=== PATIENT | female | born 1940 | race Caucasian/White ===

== ENCOUNTER 2018-09-15 14:14 | Inpatient (IN) | payer OTHER ==
[2018-09-15] VITALS (8 sets, daily range): BP systolic 48–111; BP diastolic 29–67
[~2018-09-15] VITALS: Ht 167.6 cm; Wt 85.9 kg
[~2018-09-15 14:14] MED LIST: AMLODIPINE-BEN1 EAC3; BUSPIRONE HCL10 MG PO; CARVEDILOL25 MG PO; CINNAMON; COLACE100 MG PO; DHEA25 MG; DIAZEPAM2 MG PO; DONEPEZIL HCL5 MG PO; DOXYCYCLINE 10100 MG PO; FISH OIL 1,0001 EAC5 PO; FLEXERIL PO; GLUCOSAMINE &1 EAC1 PO; HYDROCHLOROTHIA25 M1 PO; HYDROXYZINE HCL25 M1 PO; KETOCONAZOLE60 GM; LEVAQUIN 500 M500 M2 PO; LISINOPRIL10 MG; LISINOPRIL20 MG PO; LORTAB 5 MG/5001 TA1 PO; MINIPRIN81 MG; NEURONTIN 300300 M1; NEURONTIN 300300 M1 PO; NORCO 5-325 TA1 EAC1 PO; NORVASC10 MG PO; OMEPRAZOLE20 M2; OMEPRAZOLE40 MG PO; PAXIL 20 MG TAB20 M1 PO; PERCOCET 5-3251 EACH PO; PRAVACHOL40 MG PO; PREDNISONE 20 M20 MG PO; PROAIR HFA8.5 GM IH; TOPROL XL100 MG; TURMERIC 450-51 EACH PO; TYLENOL325 MG PO; ULTRAM 50MG TAB50 MG PO; VEGETABLE LAXA8.6 MG; VICOPROFEN 2001 EACH PO; VITAMIN B-125000 MCG PO; VITAMIN D-32000 UNIT PO; VITAMIN E600 UNIT PO; VITAMIN E800 UNIT; WOMEN'S 50 PLU1 EACH PO; ZEGERID 20 MG1 EACH PO; ZOCOR80 MG
[2018-09-15 14:38] LABS: HEMATOCRIT 39.6 % (37.0-47.0); HEMOGLOBIN 13.4 gm/dL (12.0-15.0); MCH 33.1 pg (26.0-34.0); MCHC 33.9 g/dL (28.0-37.0); MCV 97.7 fL (80.0-100.0); MPV 9.1 fl. (7.2-11.1); NUCLEATED RBCS 0 /100WBC; PLATELET COUNT* 183 thou/uL (150-400); RBC 4.05 mil/uL (4.20-5.00); RDW-CV 13.9 % (10.5-14.5); WBC 17.4 thou/uL (4.0-11.0)
[2018-09-15] MEDS ORDERED: ZANAFLEX4 MG PO (14:39)
[2018-09-15] MEDS ORDERED: EFFEXOR XR75 MG PO (14:40)
[2018-09-15 14:45] LABS: ANION GAP 13 mmol/L (7-16); BUN 29 mg/dL (7-18); CALCIUM 9.4 mg/dL (8.5-10.1); CHLORIDE 98 mmol/L (98-107); CO2 25 mmol/L (21-32); GLUCOSE 168 mg/dL (70-99); POTASSIUM 4.4 mmol/L (3.5-5.1); SODIUM 136 mmol/L (136-145)
[2018-09-15 14:52] LABS: ALBUMIN 3.7 g/dL (3.4-5.0); ALKALINE PHOSPHATASE 91 U/L (46-116); LIPASE 82 U/L (73-393); SGOT 22 U/L (15-37); SGPT 20 U/L (30-65); TOTAL PROTEIN 7.7 g/dL (6.4-8.2); TROPONIN-I LEVEL <0.06 ng/mL (<0.06)
[2018-09-15 14:54] LABS: ABSOLUTE LYMPHOCYTES 0.7 thou/uL (0.8-5.3); ABSOLUTE MONOCYTES 0.9 thou/uL (0.0-1.2); ABSOLUTE NEUTROPHILS 15.8 thou/uL (1.6-8.1); PLATELET ESTIMATE ADEQUATE
[2018-09-15 16:11] LABS: URINE CLARITY HAZY; URINE COLOR DARK YELLOW
[2018-09-15 16:12] LABS: ICTOTEST (BILI CONFIRMATORY) Negative (Negative); URINE REDUCING SUBSTANCE NEGATIVE (Negative)
[2018-09-15 16:15] LABS: BACTERIA-REFLEX >30 Many /HPF (None Seen); CASTS None Seen /LPF (None Seen); CRYSTALS None Seen /LPF (None Seen); SQUAMOUS NONE SEEN /LPF (0-3); URINE RBC >20 Many /HPF (0-2); URINE WBC-REFLEX >25 Many /HPF (0-5)
--- NOTE | 2018-09-15 19:47 | NUR ---
PT ARRIVED FROM ER AT APPROX 1650, PT A/O X4, C/O PAIN IN RIGHT FLANK, PT FEBRILE, ALL OTHER VSS, PT SPOKE TO , ORDERS RECIEVED FOR SURGERY TONIGHT. PTS DAUGHTER AT BEDSIDE, ADMISSION HX AND ASSESMENT DONE CHARTED. REPORT GIVEN TO HALI MONSIVAIS
--- NOTE | 2018-09-15 20:00 | NUR ---
PT WENT TO SURGERY AT 1999. PAPERWORK SIGNED, NO CHANCE TO GET VITALS OR DO ASSESSMENT BEFORE LEAVING. FAMILY FOLLOWING TO OR. WILL CONTINUE TO MONITOR.
[2018-09-15 20:29] LABS: PROTIME 10.6 Seconds (9.20-11.50)
[2018-09-15 22:27] LABS: HEMATOCRIT 29.4 % (37.0-47.0); MCH 34.3 pg (26.0-34.0); MCV 100.9 fL (80.0-100.0); MPV 8.9 fl. (7.2-11.1); RBC 2.92 mil/uL (4.20-5.00); RDW-CV 14.1 % (10.5-14.5)
[2018-09-15 22:42] LABS: PCO2 29.4 mmHg (35.0-45.0); PO2 70.9 mmHg (75.0-100.0); pH 7.392 (7.340-7.450)
[2018-09-15 22:43] LABS: BE -6.4 mmol/L (-2 to +3); HCO3 17.5 mmol/L (22.0-26.0)
[2018-09-15 22:44] LABS: MAGNESIUM 1.1 mg/dL (1.8-2.4); PHOSPHORUS* 0.9 mg/dL (2.5-4.9)
[2018-09-15 23:04] LABS: CALCIUM 7.9 mg/dL (8.5-10.1); CREATININE 2.1 mg/dL (0.6-1.3)
[2018-09-15 23:07] LABS: POTASSIUM 2.3 mmol/L (3.5-5.1)
[2018-09-15 23:09] LABS: ALBUMIN 2.3 g/dL (3.4-5.0); TOTAL BILIRUBIN 0.7 mg/dL (<0.1-1.0); TOTAL PROTEIN 5.2 g/dL (6.4-8.2)
[2018-09-16] VITALS (73 sets, daily range): BP systolic 67–136; BP diastolic 24–78
[2018-09-16 06:24] LABS: HEMATOCRIT 27.9 % (37.0-47.0); HEMOGLOBIN 9.6 gm/dL (12.0-15.0); MCH 33.5 pg (26.0-34.0); MCHC 34.3 g/dL (28.0-37.0); MCV 97.6 fL (80.0-100.0); MPV 9.3 fl. (7.2-11.1); NUCLEATED RBCS 0 /100WBC; PLATELET COUNT* 89 thou/uL (150-400); RBC 2.85 mil/uL (4.20-5.00); RDW-CV 14.4 % (10.5-14.5)
[2018-09-16 06:30] LABS: CALCIUM 7.4 mg/dL (8.5-10.1); CREATININE 2.1 mg/dL (0.6-1.3); MAGNESIUM 1.5 mg/dL (1.8-2.4)
[2018-09-16 06:31] LABS: POTASSIUM 3.3 mmol/L (3.5-5.1)
[2018-09-16 06:40] LABS: PREALBUMIN 15.3 mg/dL (18.0-35.7)
[2018-09-16 07:20] LABS: ABSOLUTE LYMPHOCYTES 0.3 thou/uL (0.8-5.3); ABSOLUTE NEUTROPHILS 16.7 thou/uL (1.6-8.1); PLATELET ESTIMATE DECREASED
--- NOTE | 2018-09-16 07:41 | NUR ---
Pt arrived from PACU to ICU at 2200. Pt hypotensive, BP 70s-80s/30s-40s. Started on Levophed, eventually titraing to max. Added Gigi-synephrine, titrated to 150 mcg to attain MAP at least 65. Pt tends to be fidgety, not always holding still for BP reading, which obsures some readings. Pt Alert & oriented, though forgetful. Spain draining cloudy, dark marin to red urine, but urine has cleared during course of shift. T 102.4 on arrival. Tmax 103.4, but latest reading 100.6. Will continue to monitor.
[2018-09-16 14:23] LABS: MAGNESIUM 2.2 mg/dL (1.8-2.4); POTASSIUM 3.6 mmol/L (3.5-5.1)
--- NOTE | 2018-09-16 16:09 | OP ---
[facility] [address] [place] [address] OPERATIVE REPORT Name: ALESIAJANEY HERMINIO Room: [address] IN M.R.#: [id number] Admission: 09/15/18 Attend Phys: Tito Reid MD Discharge: Date of : 40 Report #: [id number] THIS REPORT FOR: //name// CC: Tito Reid [facility] physician/PCP DATE OF SERVICE: 09/15/2018 PREOPERATIVE DIAGNOSIS: Right ureteral calculus with urinary tract infection, flank pain, signs of sepsis. POSTOPERATIVE DIAGNOSIS: DIAGNOSIS: Right ureteral calculus with urinary tract infection, flank pain, signs of sepsis. PROCEDURE: Cystoscopy, right retrograde pyelogram, right ureteral stent placement. SURGEON: Alexi White M.D. ANESTHESIA: General. ESTIMATED BLOOD LOSS: None. DRAINS: 6 x 28 right ureteral stent. SPECIMENS: Urine from right renal pelvis for culture and sensitivity. COMPLICATIONS: None. INDICATIONS: This is a 78-year-old female with right flank pain, fever, chills, renal insufficiency, elevated lactate and borderline hypotension. Noncontrast CT scan reveals a right distal ureteral calculus with severe hydronephrosis. Urgent decompression is indicated. See the consult note for details. Options were discussed and the patient has elected to undergo cystoscopy with right retrograde pyelogram and right ureteral stent placement. I explained the need to defer definitive stone management until UTI is eradicated. Risks and benefits of the procedure were discussed with the patient and her family at bedside. Questions were answered. They voiced clear understanding and wanted to proceed. DESCRIPTION OF PROCEDURE: The patient was on perioperative IV antibiotics. After induction of general anesthesia, she was positioned, prepped and draped in the lithotomy position. A timeout procedure was performed. Cystourethroscopy was performed. There was a urethral caruncle. The urethra and bladder were otherwise normal on systematic examination. The ureteral orifices were orthotopic. No blood was seen from either. A 5-Scottish [place] [address] OPERATIVE REPORT Name: JANEY DUMAS Room: [address] IN M.R.#: [id number] Admission: 09/15/18 Attend Phys: Tito Reid MD Discharge: Date of : 40 Report #: [id number] advanced with fluoroscopic guidance to the region of the right renal pelvis and 10 mL of cloudy urine was aspirated. This was sent for culture and sensitivity. Catheter was then used to perform retrograde pyelogram after withdrawing it into the distal ureter. This reveals a filling defect in the distal ureter with dilation and tortuosity of the ureter proximal to the filling defect and of the renal pelvis. The catheter was advanced back into the renal pelvis and used to pass a sensor wire into the renal pelvis with fluoroscopic guidance. Catheter was removed leaving the wire in place. The wire was used for placement of a 6 x 28 right ureteral stent with good position confirmed in the renal pelvis fluoroscopically and in the bladder visually. There was brisk drainage of the cloudy urine from the stent. The bladder was left partially filled and the scope was removed. Lidocaine jelly was given per urethra. A 16-Scottish Spain catheter was placed. The patient was transferred off of the operating room table and to the recovery room in stable condition. Further management will depend on her clinical progress, but will involve at least 2 weeks of culture-directed antibiotics and definitive stone management electively after her infection is eradicated. <ELECTRONICALLY SIGNED> By: Alexi Wihte MD 09/16/18 1609 [id number] [id number] White MD /nt
--- NOTE | 2018-09-16 17:27 | NUR ---
PT CARE ASSUMED AFTER REPORT. ASSESSMENTS COMPLETE. 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 PT WITH C/O "CHEST PRESSURE" THIS AFTERNOON. STAT EKG AND TROPONIN. TROP CRITICLE AT 0.85. DR TRAYLOR NOTIFIED. CARDIOLOGY CONSULT AND TROP FOR 1999 AND AM ORDERED. PT REMAINS ON LEVOPHED GTT TO KEEP MAP AT OR GREATER THAN 65. NS INFUSING. FULLER TO DD WITH DARK URINE. O2 6L HF NC. DENIES PAIN.
--- NOTE | 2018-09-16 20:15 | NUR ---
FAMILY AT BEDSIDE, PT AND FAMILY REQUESTING MEDICATION TO SLEEP, STATES PT NORMALLY TAKES TYLENOL PM WITH MINIMAL RESULTS HOME MEDICATION, STATES MELATONIN IN PAST HAS HAD NO EFFECT ON PT FOR REST, REQUESTING PT TRY AMBIEN. PT ON 3L PER NC, STATES HAS INTERMITTENT DIFFICULTY TAKING DEEP BREATHS, OXYGEN 6L PER NC BEGINNING NOC, TITRATED DOWN TO 3L PER NC BY RT, SAO2 98% ON 3L AT THIS TIME, PT REPORTS INTERMITTENT PRODUCTIVE COUGH, LUNG SOUNDS CLEAR TO ASCULTATION, EDUCATION COUGH DEEP BREATHING EXERCISES, FAMILY CONCERNED PT COULD "DEVELOP PNEUMONIA" WHILE BEING BEDREST. FAMILY REQUESTING BREATHING INHALATION TREATMENTS. SPOKE WITH DR NELSON COMMUNICATED FAMILY/PT REQUESTS, NEW ORDERS RECEIVED FOR AMBIEN HS PRN AND DUONEB INHALATION TX BID PRN, COMMUNICATED NEW ORDERS WITH PT AND FAMILY AT BEDSIDE, WILL INITIATE ORDERS AND CONTINUE TO MONITOR.
--- NOTE | 2018-09-16 21:04 | NUR ---
SERUM TROPONIN INCREASED LEVEL FROM 0.85 TO 0.93, PT DENIES CP OR PRESSURE EXCEPT WHILE TAKING A DEEP BREATH THAT RESOLVES IMMEDIATLY AFTER EXHALATION, REMAINS NSR WITH BBB TRACING YARDAGE CONTROL OPERATOR. CALLED DR RHODES, COMMUNCATED NEW TROPONIN LEVEL, NEW ORDERS RECEIVED ASA 325MG PO X1 NOW AND REPEAT TROPONIN LEVEL 4HOURS FROM LAST TROPONIN DRAWN. COMMUNICATED NEW ORDERS WITH PATIENT, WILL INITATE ORDERS AND CONTINUE TO MONITOR.
--- NOTE | 2018-09-16 21:06 | NUR ---
PT ALLERGIC TO NAPROXEN, DENIES ALLERGY TO ASPIRIN, STATES HAS TAKEN ASA IN PAST WITHOUT ANY ADVERSE EFFECTS.
[2018-09-17] VITALS (56 sets, daily range): BP systolic 101–144; BP diastolic 54–83
[2018-09-17 05:59] LABS: ABSOLUTE EOSINOPHILS 0.4 thou/uL (0.0-0.7); ABSOLUTE LYMPHOCYTES 0.6 thou/uL (0.8-5.3); ABSOLUTE MONOCYTES 0.4 thou/uL (0.0-1.2); ABSOLUTE NEUTROPHILS 10.4 thou/uL (1.6-8.1); BASOPHILS 0.1 %; EOSINOPHILS 3.2 %; HEMATOCRIT 27.4 % (37.0-47.0); HEMOGLOBIN 9.2 gm/dL (12.0-15.0); LYMPHOCYTES 4.7 %; MCHC 33.4 g/dL (28.0-37.0); MCV 98.9 fL (80.0-100.0); MONOCYTES 3.6 %; MPV 9.8 fl. (7.2-11.1); NUCLEATED RBCS 0 /100WBC; PLATELET COUNT* 72 thou/uL (150-400); POLYS 88.4 %; RBC 2.77 mil/uL (4.20-5.00); RDW-CV 14.8 % (10.5-14.5); WBC 11.7 thou/uL (4.0-11.0)
[2018-09-17 06:29] LABS: ALBUMIN 2.3 g/dL (3.4-5.0); CALCIUM 7.6 mg/dL (8.5-10.1); CREATININE 1.2 mg/dL (0.6-1.3); POTASSIUM 3.3 mmol/L (3.5-5.1); TOTAL BILIRUBIN 0.5 mg/dL (<0.1-1.0); TOTAL PROTEIN 4.9 g/dL (6.4-8.2)
--- NOTE | 2018-09-17 06:30 | NUR ---
PROGRESSING TOWARDS GOALS, RESTING QUIETLY WITH EYES CLOSED OFF AND ON DURING NOC, EASILY AROUSABLE TO VERBAL STIMULI, INTERMITTENT CHEST PRESSURE ONLY WHEN COUGHING OR TAKING DEEP BREATH, TROPONIN TRENDING DOWN FROM FROM 0.93 AT 2001 TO 0.90 THIS AM, OXYGEN 3L PER NC SAO2 =>97%, AMBIEN 5MG PO GIVEN X1 FOR INSOMNIA PER REQUEST SOMEWHAT HELPFUL FOR REST. SERUM POTASSIUM 3.3 THIS AM, POTASSIUM CHLORIDE 20MEQ X4 TOTAL DOSES BY INFUSION PUMP STARTED FOLLOWING ORDERED ELECTROLYTE PROTOCOL. JELLOW AND POPSICLE CONSUMED HS, NO N/V THIS SHIFT. NSR WITH BBB TRACING SALON PROFESSIONAL. FULLER CATHETER PATENT DD WITH BLOODY URINE OUTPUT. USING CALL LIGHT FOR NEEDS. CALL LIGHT CONTINUES IN REACH.
--- NOTE | 2018-09-17 10:57 | NUR ---
PT CARE ASSUMED AFTER REPORT. AM ASSESSMENT COMPLETE. 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 O2 3LNC. FULLER TO DD WITH BLOODY URINE. PT GIVEN PRN MIRALAX FOR CONSTIPATION. HAS HAD MULTIPLE VERY SMALL STOOLS. BLOOD PRESSURES WNL. UP TO CHAIR FOR APPROX 30 MIN. REPORTS CHEST PRESSURE WITH COUGH AND DEEP BREATHING. DR TRAYLOR AWARE. PROGRESSING TOWARDS GOALS.
--- NOTE | 2018-09-17 12:25 | EKG ---
[place] [address] ELECTROCARDIOGRAM REPORT Name: JANEY DUMAS Room: [address] ADM IN .R.#: [id number] Admission: 09/15/18 Attend Phys: Tito Reid MD Discharge: Date of : 40 Report #: [id number] THIS REPORT FOR: //name// [facility] ED Test Date: 2018-09-15 Test Time: 14:21:58 Pat Name: JANEY DUMAS Department: Room: [facility] Gender: F Telecommunications Network Planner: Lanny PISANO : 1940 Requested By: Isaac Armendariz Order Number: [id number] MD: Emanuel Conner Measurements Intervals [place] Rate: 68 P: 34 GA: 200 QRS: -86 QRSD: 158 T: -68 QT: 453 QTc: 482 Interpretive Statements 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
--- NOTE | 2018-09-17 12:31 | EKG ---
[place] [address] ELECTROCARDIOGRAM REPORT Name: JANEY DUMAS Room: [address] ADM IN M.R.#: [id number] Admission: 09/15/18 Attend Phys: Tito Reid MD Discharge: Date of : 40 Report #: [id number] THIS REPORT FOR: //name// [facility] Test Date: 2018-09-16 Test Time: 14:41:28 Pat Name: JANEY DUMAS Department: Room: [address] Gender: F Switchman Supervisor: UNKNOWN : 1940 Requested By: Emanuel Conner Order Number: [id number] Denis MD: Emanuel Conner Measurements Intervals [place] Rate: 72 P: 70 SC: 183 QRS: -76 QRSD: 161 T: -61 QT: 477 QTc: 523 Interpretive Statements 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
--- NOTE | 2018-09-17 16:24 | NUR ---
ATTEMPTED TO COMPLETE BEDSIDE SWALLOW. PATIENT COUGHING AND SPITTING BACK OUT ICE CHIPS. REQUIRES ST EVALUATION.
--- NOTE | 2018-09-17 17:54 | NUR ---
PATIENT CARE ASSUMED AT 1130 FROM YODIT FELDER. PATIENT REMAINED AOX4. UP IN CHAIR X2 TODAY. OFF ALL VASOACTIVE MEDICATIONS SINCE 0530 THIS AM. PATIENT COUGHING UP BLOODY PHLEGM. HUMIDIFIER APPLIED TO O2. REMAINS ON 3L NC. PATIENT COMPLAINTS OF "FEELING LIKE SHE CANT PEE". PYRIDIUM ORDERED BY HOSPITALIST, ADMINISTERED. PATIENT REPORTS RELIEF. URINE REMAINS BLOOD TINGED AT THIS TIME. DAUGHTER PRESENT THROUGHOUT SHIFT. DENIES FURTHER CONCERNS FOR NURSING STAFF.
--- NOTE | 2018-09-17 22:30 | NUR ---
RECEIVED REPORT AND TRANSFERRED FROM ICU TO ROOM 213 PER BED. PT COOPERATIVE. O2 ON AT 3L/NC, HOB ELEVATED. HAVING OCC MOIST COUGH. FULLER PATENT WITH LG AMT OF DIONICIO URINE. RT IJ TRIPLE LOCKED OFF. TELEMETRY ON SHOWING SR. WILL CONT TO MONITOR AND ASSIST NEEDED.
[2018-09-18 04:00] VITALS: BP 149/68
[2018-09-18 05:36] LABS: ABSOLUTE EOSINOPHILS 0.1 thou/uL (0.0-0.7); ABSOLUTE LYMPHOCYTES 0.5 thou/uL (0.8-5.3); ABSOLUTE MONOCYTES 0.4 thou/uL (0.0-1.2); ABSOLUTE NEUTROPHILS 10.1 thou/uL (1.6-8.1); BASOPHILS 0.2 %; EOSINOPHILS 0.7 %; HEMATOCRIT 29.9 % (37.0-47.0); HEMOGLOBIN 10.3 gm/dL (12.0-15.0); LYMPHOCYTES 4.8 %; MCH 33.8 pg (26.0-34.0); MCHC 34.3 g/dL (28.0-37.0); MCV 98.5 fL (80.0-100.0); MONOCYTES 3.7 %; MPV 9.4 fl. (7.2-11.1); NUCLEATED RBCS 0 /100WBC; PLATELET COUNT* 96 thou/uL (150-400); POLYS 90.6 %; RBC 3.04 mil/uL (4.20-5.00); RDW-CV 14.5 % (10.5-14.5); WBC 11.1 thou/uL (4.0-11.0)
[2018-09-18 05:58] LABS: ALBUMIN 2.5 g/dL (3.4-5.0); CALCIUM 8.8 mg/dL (8.5-10.1); CREATININE 1.1 mg/dL (0.6-1.3); POTASSIUM 3.5 mmol/L (3.5-5.1); TOTAL BILIRUBIN 0.9 mg/dL (<0.1-1.0); TOTAL PROTEIN 6.2 g/dL (6.4-8.2)
[2018-09-18 06:12] LABS: PREALBUMIN 13.3 mg/dL (18.0-35.7)
--- NOTE | 2018-09-18 06:30 | NUR ---
AWAKE ALL NIGHT WITH INCREASING RESTLESSNESS AND AGITATION. PT VERY CONFUSED, UNABLE TO REORIENTATE TO PLACE. ATTEMPTING TO GET OUT OF BED OCC. DID ASSIST PT TO BSC WITH MIN ASSIST BUT UNABLE TO HAVE BM. PT OCC REMOVING OXYGEN, REAPPLIED. CONT TO SHOW SR ON TELE MONITOR. UNABLE TO ACHIEVE HS GOAL OF REST BUT REMAINED SAFE. HOURLY ROUNDING OBSERVED.
[2018-09-18 08:23] VITALS: BP 157/71
--- NOTE | 2018-09-18 11:23 | CON ---
[address] [address] CONSULTATION Name: ALESIAJANEYJUSTEN DURHAM Room: [address] IN M.R.#: [id number] Admission: 09/15/18 Attend Phys: Tito Reid MD Discharge: Date of : 40 Report #: [id number] THIS REPORT FOR: //name// CC: Tito Reid FAM physician/PCP DATE OF SERVICE: 09/17/2018 ATTENDING PHYSICIAN: Dr. Reid. REASON FOR CONSULTATION: Right pyelonephritis. HISTORY OF PRESENT ILLNESS: The patient is a 78-year-old white woman admitted through the Emergency Room with history of right flank pain, fevers and findings compatible with acute pyelonephritis and she is diagnosed to have right ureteral calculus and Dr. Monaco performed cystoscopy, right retrograde pyelogram, right ureteral stent placement. The patient remains in the ICU. She is on treatment with Zosyn. She is better today. The patient denies having had previous UTI. Lives at home with her granddaughter of her same name. PAST MEDICAL HISTORY: 1. Cholecystectomy. 2. Hysterectomy. 3. Colonic diverticula. 4. Right heart valve leak. 5. Hypertension. 6. Chronic back and neck pain. DRUG ALLERGIES: There is a history of allergy intolerance to BENADRYL, NAPROXEN, and CODEINE. MEDICATIONS: The patient is on treatment with Zosyn 3.375 grams IV every 12 hours. Pressors has been discontinued. She received treatment with potassium and magnesium supplementation per protocol. Atrovent and albuterol inhalation treatments, p.r.n. zolpidem tartrate, pantoprazole 40 mg p.o. daily, normal saline intravenously. She has received several boluses of normal saline. REVIEW OF SYSTEMS: Right flank pain improved. Fevers lower. Vital signs stable today. PHYSICAL EXAMINATION: GENERAL: A well-developed woman, not septic looking. VITAL SIGNS: Temperature maximum 103.4 on 09/16/2018 at 1:36 a.m. Pulse down to 79 per minute, respirations 20, BP 115/68, temperature down to 98.9. O2 saturation 97% on 3 liters oxygen nasal cannula. HEENMT: Arcus cornealis. Pupils small, reactive. Mouth, [place] [address] CONSULTATION Name: JANEY DUMAS HERMINIO Room: [address]#: [id number] Admission: 09/15/18 Attend Phys: Tito Reid MD Discharge: Date of : 40 Report #: [id number] membrane. NECK: Supple, no thyromegaly. LUNGS: Basilar crackles. HEART: S1, S2. No gallops. ABDOMEN: Tenderness right flank and right upper abdominal quadrant. PELVIC AND RECTAL: Deferred. EXTREMITIES: No clubbing, cyanosis. NEUROLOGIC: Grossly within normal limits. LABORATORY DATA: Sodium 137, potassium 3.6, BUN 34, creatinine 2.1, glucose 103. Magnesium low at 1.1, replaced and repeat is normalized. The troponin elevated at 0.91. White blood cell count 17,000; hemoglobin 9.6 g/dL; platelets decreased at 89,000 and on admission the platelets were 183,000. White blood cell count differential revealed 72% segmented neutrophils, 26% bands. The urinalysis compatible with acute urinary tract infections. ABGs: pH 7.39, pCO2 29, pO2 70, bicarbonate 17.3. These set of gases on nasal cannula oxygen 3 liters per minute. MICROBIOLOGY DATA: Pending at the time of this dictation. RADIOLOGY EVALUATION: A chest x-ray revealed no acute process. CT scan of abdomen and pelvis, right hydronephrosis, ureteral calculus. Three aortic aneurysms, measuring the largest 3.9 cm. Central bile duct dilatation compatible with previous cholecystectomy. ASSESSMENT: 1. Severe sepsis secondary to acute right-sided pyelonephritis. 2. Right-sided hydronephrosis secondary to ureteral stone, status post stenting. 3. Anemia. 4. Elevation of troponin. 5. Metabolic acidosis. SUGGESTIONS: Obviously, the patient is improved on Zosyn and we will continue with this antibiotic. We will order repeat laboratory parameters this morning. Dr. Reid, thank you for requesting my suggestions. <ELECTRONICALLY SIGNED> By: Sonu Perez MD 09/18/18 1123 0420 [id number] Perez MD /nt
--- NOTE | 2018-09-18 12:43 | NUR ---
Pt is A&O. Resides at home with her dtr. Independent with ADLs. Pt has a walker and cane at home that she can use as needed. No hx of HH or SNF. No home o2. Pt aware that she may need home o2 at dc, CM following. Pt unsure of dc needs at this time, Pt anxious and ready to dc home. Following.
--- NOTE | 2018-09-18 12:47 | CON ---
[address] [address] CONSULTATION Name: JANEY DUMAS Room: [address] IN M.R.#: [id number] Admission: 09/15/18 Attend Phys: Tito Reid MD Discharge: Date of : 40 Report #: [id number] THIS REPORT FOR: //name// CC: Tito Reid [facility] physician/PCP INDICATION: Elevated troponin. HISTORY OF PRESENT ILLNESS: The patient is a very pleasant 78-year-old white female who was admitted with nephrolithiasis and pyelonephritis with sepsis. She required pressor agents to support her blood pressure. In this setting, she was noted to have an elevated troponin of 0.9. She has chest pain that is atypical and only worse with cough or deep inspiration. The pain is also exquisitely reproducible on palpation. She denies any history of coronary artery disease. Her risk factors are family history of premature atherosclerotic coronary artery disease in a brother. She has hypertension. She denies any history of diabetes, hyperlipidemia or tobacco use. She is without other cardiac complaint at this time. PAST MEDICAL HISTORY: 1. Cholecystectomy. 2. Hysterectomy. 3. Diverticulosis. 4. Leaky heart valve. 5. Hypertension. 6. Right foot surgery x 2. 7. Chronic back and neck pain. 8. Left knee arthroscopy. 9. Mid back surgery. FAMILY HISTORY: Significant for premature atherosclerotic coronary artery disease. SOCIAL HISTORY: The patient does not smoke. She quit smoking remotely. She does not drink alcohol. She lives with her daughter and granddaughter. CURRENT MEDICATIONS: Zanaflex 4 mg p.o. t.i.d., Effexor 75 mg daily, B12 1000 mg daily, carvedilol 25 mg b.i.d., turmeric 1 tablet daily, gabapentin 300 mg t.i.d., donepezil 5 mg daily, lisinopril 20 mg daily, amlodipine 10 mg daily, omeprazole 40 mg daily, Colace 100 mg daily, Women's 50 daily formula plus multivitamin 1 daily, acetaminophen p.r.n. ALLERGIES: DIPHENHYDRAMINE, NAPROSYN and CODEINE. PHYSICAL EXAMINATION: VITAL SIGNS: Blood pressure 124/63, pulse 70 and regular. GENERAL: This is a pleasant elderly female in no [place] [address] CONSULTATION Name: JANEY DUMAS Room: [address]#: [id number] Admission: 09/15/18 Attend Phys: Tito Reid MD Discharge: Date of : 40 Report #: [id number]. HEENT: Extraocular muscles intact. Mucous membranes are moist. NECK: Shows no jugular venous distention. There are no carotid bruits. CHEST: Reveals clear lung gilman. CARDIOVASCULAR: Reveals a regular rhythm with no gallop or murmur appreciated. The chest wall is exquisitely tender. ABDOMEN: Reveals normal bowel sounds. The abdomen is soft, nontender. EXTREMITIES: Shows no edema. Peripheral pulses are 2+ and easily palpable. SKIN: Warm and dry. LABORATORY DATA: Reviewed. Sodium 141, potassium 3.3, chloride 109, bicarbonate 22, BUN 26, creatinine 1.2, serum glucose 94, AST 38, lipase 82, total bilirubin 0.5, calcium 7.6, phosphorus 3.0, magnesium 2.0, alkaline phosphatase 78, ALT 25, total protein 4.9, albumin 2.3. EGFR 43. Lactic acid 1.0. Troponin less than 0.06, 0.85, 0.93, 0.91, 0.90 sequentially. NT-proBNP 82. White blood cell count 11.7; hemoglobin 9.2; platelet count 72,000. A 12-lead EKG shows sinus rhythm with right bundle and left anterior fascicular block. No acute ST segment abnormalities noted. IMPRESSION AND RECOMMENDATIONS: 1. Minimally elevated troponin in the setting of severe sepsis. This is likely due to hypotension and cardiac strain as opposed to acute coronary syndrome. I would not recommend any treatment at this time for acute coronary syndrome. I would recommend obtaining an echocardiogram to evaluate underlying cardiac structure and function. I would recommend stress testing when patient recovers from pyelonephritis and sepsis. 2. Hypertension. The patient's blood pressure is normal at present. Antihypertensive medications held in the setting of sepsis. Would resume as tolerated and needed. 3. Pyelonephritis, per primary physician. 4. Sepsis. The patient has tolerated weaning from her pressor agents. She appears improved at this time. Continue antibiotics per Infectious Diseases and primary physician. <ELECTRONICALLY SIGNED> By: Emanuel Conner MD, FACC 09/18/18 1247 0834 [id number] Conner MD, FACC /nt
--- NOTE | 2018-09-18 17:29 | 2DMMODE ---
[place] [address] 2 D/M-MODE ECHOCARDIOGRAM Name: JANEY DUMAS Room: [address] IN [facility]#: [id number] Admission: 09/15/18 Attend Phys: Tito Reid, Discharge: Date of : 40 Date of Service: 09/18/18 1729 Report #: [id number] THIS REPORT FOR: //name// APPROVED REPORT Study performed: 09/18/2018 14:41:29 EXAM: Comprehensive 2D, Doppler, and color-flow Echocardiogram Patient Location: In-Patient Room #: [facility] Status: routine BSA: 2.01 HR: 67 bpm BP: 157/71 mmHg Rhythm: NSR Other Information Study Quality: Excellent Indications Acute VT 2D Dimensions IVSd: 13.42 (7-11mm) LVOT Diam: 22.17 (18-24mm) LVDd: 45.33 mm PWd: 12.69 (7-11mm) Ascending Ao: 39.69 (22-36mm) LVDs: 32.15 (25-40mm) Aortic Root: 33.67 mm Volumes Left Atrial Volume (Systole) LA ESV Index: 39.50 mL/m2 Aortic Valve AoV Peak Andrez.: 1.74 m/s AO Peak Gr.: 12.05 mmHg LVOT Max P.92 mmHg AO Mean Gr.: 6.62 mmHg LVOT Mean P.37 mmHg LVOT Max V: 1.22 m/s AO V2 VTI: 31.54 cm LVOT Mean V: 0.68 m/s SHARYN (VTI): 2.77 cm2 LVOT V1 VTI: 22.64 cm Mitral Valve E/A Ratio: 1.48 MV Decel. Time: 215.48 ms MV E Max Andrez.: 0.89 m/[place] [address] 2 D/M-MODE ECHOCARDIOGRAM Name: JANEY DUMAS Room: [address] IN .R.#: [id number] Admission: 09/15/18 Attend Phys: Tito Reid, Discharge: Date of : 40 Date of Service: 09/18/18 1729 Report #: [id number] MV PHT: 62.49 ms MVA (PHT): 3.52 cm2 TDI E/Lateral E': 8.09 E/Medial E': 11.13 Medial E' Andrez.: 0.08 m/s Lateral E' Andrez.: 0.11 m/s Pulmonary Valve PV Peak Andrez.: 1.00 m/s PV Peak Gr.: 3.99 mmHg Tricuspid Valve RAP Estimate: 5.00 mmHg TR Peak Gr.: 29.45 mmHg RVSP: 34.00 mmHg PA Pressure: 34.00 mmHg Left Ventricle The left ventricle is normal size. There is normal LV segmental wall motion. Mild concentric left ventricular hypertrophy. Left ventricular systolic function is normal. The left ventricular ejection fraction is within the normal range. LVEF is 50-55%. The left ventricular diastolic function is normal. Right Ventricle The right ventricle is normal size. The right ventricular systolic function is normal. Atria Left atrium is mildly dilated. The right atrium size is normal. Aortic Valve The aortic valve is normal in structure. No aortic regurgitation is present. There is no aortic valvular stenosis. Mitral Valve The mitral valve is normal in structure. Mild mitral regurgitation. No evidence of mitral valve stenosis. Tricuspid Valve The tricuspid valve is normal in structure. Mild tricuspid regurgitation. estimat pa pressure 35 mm Hg Pulmonic Valve The pulmonary valve is normal in structure. There is no pulmonic [place] [address] 2 D/M-MODE ECHOCARDIOGRAM Name: JANEY DUMAS Room: [address] IN [facility]#: [id number] Admission: 09/15/18 Attend Phys: Tito Reid, Discharge: Date of : 40 Date of Service: 09/18/18 1729 Report #: [id number] Great Vessels The aortic root is normal in size. IVC is normal in size and collapses >50% with inspiration. Pericardium There is no pericardial effusion. <Conclusion> Mild concentric left ventricular hypertrophy. Left atrium is mildly dilated. Mild mitral regurgitation. Mild tricuspid regurgitation. estimat pa pressure 35 mm Hg LVEF is 50-55%. <ELECTRONICALLY SIGNED> By: Baljeet Hall MD, [facility] 09/18/181728 28 28 Baljeet Hall MD, FACC /INF
[2018-09-18 17:47] LABS: HEMATOCRIT 30.7 % (37.0-47.0); HEMOGLOBIN 10.6 gm/dL (12.0-15.0); MCH 33.7 pg (26.0-34.0); MCHC 34.4 g/dL (28.0-37.0); MCV 97.8 fL (80.0-100.0); MPV 9.4 fl. (7.2-11.1); NUCLEATED RBCS 0 /100WBC; PLATELET COUNT* 114 thou/uL (150-400); RBC 3.14 mil/uL (4.20-5.00); RDW-CV 14.5 % (10.5-14.5); WBC 9.9 thou/uL (4.0-11.0)
[2018-09-18 18:33] LABS: ABSOLUTE LYMPHOCYTES 1.2 thou/uL (0.8-5.3); ABSOLUTE MONOCYTES 0.3 thou/uL (0.0-1.2); ABSOLUTE NEUTROPHILS 8.4 thou/uL (1.6-8.1); PLATELET ESTIMATE ADEQUATE
[2018-09-18 20:00] VITALS: BP 154/91
--- NOTE | 2018-09-18 20:00 | NUR ---
RECEIVED REPORT AND ASSUMED CARE OF PT, ASSESSMENT COMPLETED. PT ORIENTED AND COOPERATIVE. SOME WHAT ANXIOUS OVER CELLPHONE BECAUSE SHE CAN NOT OPERATE IT. ASSISTED TO BSC WITH STEADY GAIT. VOIDING AND INCONT OF URINE. NO COMPLAINTS VOICED. WILL CONT TO MONITOR AND ASSIST NEEDED.
[2018-09-19] VITALS: BP 136/67
--- NOTE | 2018-09-19 06:17 | NUR ---
SLEPT WELL TONIGHT. TURNING SELF IN BED. NO SOB NOTED, ON RA. NO CHANGE IN ASSESSMENT. HS GOALS OF REST AND SAFETY ACHIEVED. HOURLY ROUNDING OBSERVED.
[2018-09-19 06:22] LABS: ABSOLUTE EOSINOPHILS 0.1 thou/uL (0.0-0.7); ABSOLUTE LYMPHOCYTES 0.9 thou/uL (0.8-5.3); ABSOLUTE MONOCYTES 0.7 thou/uL (0.0-1.2); ABSOLUTE NEUTROPHILS 6.5 thou/uL (1.6-8.1); BASOPHILS 0.4 %; EOSINOPHILS 0.9 %; HEMATOCRIT 29.3 % (37.0-47.0); HEMOGLOBIN 10.1 gm/dL (12.0-15.0); MCH 33.7 pg (26.0-34.0); MCHC 34.5 g/dL (28.0-37.0); MCV 97.8 fL (80.0-100.0); MONOCYTES 8.2 %; MPV 10.1 fl. (7.2-11.1); NUCLEATED RBCS 0 /100WBC; PLATELET COUNT* 101 thou/uL (150-400); POLYS 79.5 %; RDW-CV 14.2 % (10.5-14.5); WBC 8.2 thou/uL (4.0-11.0)
[2018-09-19 06:41] LABS: CALCIUM 8.9 mg/dL (8.5-10.1); POTASSIUM 3.1 mmol/L (3.5-5.1)
[2018-09-19 07:30] VITALS: BP 154/63
--- NOTE | 2018-09-19 09:30 | CON ---
[address] [address] CONSULTATION Name: JANEY DUMAS Room: [address] IN .R.#: [id number] Admission: 09/15/18 Attend Phys: Tito Reid MD Discharge: Date of : 40 Report #: [id number] THIS REPORT FOR: //name// CC: Tito Reid [facility] physician/PCP DATE OF SERVICE: 09/18/2018 REASON FOR CONSULTATION: Thrombocytopenia. HISTORY OF PRESENT ILLNESS: A 78-year-old female who has been treated for sepsis for septic shock, Gram-negative septicemia due to urosepsis, KHANH and aspiration pneumonia. The patient has been admitted since 09/15/2018. The patient underwent cystoscopy with right retrograde pyelogram and right ureteral stent placement. Upon evaluation on the , her platelet count was 183; however, dropped to the 89, 72 yesterday and this morning went up to 96. The patient received vancomycin and Lovenox during her hospital stay; however, her hemoglobin dropped to the level of 10.3 from 13.4. Today she is feeling significantly better. She denies any acute complaints. No nausea, no vomiting, no abdominal pain. REVIEW OF SYSTEMS: All systems reviewed. It was negative except the above. PAST MEDICAL AND SURGICAL HISTORY: Cholecystectomy, hysterectomy, diverticula, hypertension and chronic back pain. MEDICATIONS: Per admission list. ALLERGIES: CODEINE, NAPROXEN, DYE, BENADRYL. SOCIAL HISTORY: No smoking, no alcohol abuse or drug abuse. FAMILY HISTORY: Positive for coronary artery disease. MEDICATIONS: Per admission list. PHYSICAL EXAMINATION: VITAL SIGNS TODAY: Temperature 36.0, pulse 81, respirations 16, blood pressure is 157/71, SpO2 was 97% on 3 liters. GENERAL: The patient was lying in bed. She was not in acute distress. LUNGS: Clear to auscultation bilaterally. HEART: Regular rate and rhythm. S1, S2 within normal limits. ABDOMEN: Soft, nontender, nondistended, bowel sounds positive. LABORATORY DATA: Today WBC is 11.1, hemoglobin 10.3, platelets 96 today. PT was 10.6 and PTT 35.3. Sodium was 137, potassium 3.5, creatinine 1.1. [place] [address] CONSULTATION Name: JANEY DUMASZABETH Room: [address]#: [id number] Admission: 09/15/18 Attend Phys: Tiot Reid MD Discharge: Date of : 40 Report #: [id number] ASSESSMENT: A 78-year-old female who has been evaluated because of acquired thrombocytopenia after she was admitted on 09/15/2018. The patient received Zosyn and Lovenox. I believe the etiology of her platelet count is multifactorial including sepsis and drug related. Her platelet count actually is starting, today has a level of 96. RECOMMENDATIONS: We will repeat her CBC with heparin and citrate to avoid clumping. Workup including B12, serum folate, serum level, peripheral blood smear, DIC profile and we will obtain HIT profile. The patient does not have any active bleeding at this point. <ELECTRONICALLY SIGNED> By: Mayelin Gonzalez MD 09/19/18 0930 [id number] [id number] Gonzalez MD /nt
--- NOTE | 2018-09-19 10:24 | NUR ---
RECEIVED PT CARE 0700. SHE IS AWAKE/ALERT AND ORIENTED X4. VSS. AM ASSESSMENT CHARTED. MEDS GIVEN PER MAR. UP WITH ASSIST X1 TO BEDSIDE COMMODE. PLANNING FOR DC TO HOME THIS AFTERNOON. WILL CONTINUE TO MONITOR.
[2018-09-19 10:52] VITALS: BP 154/63
[2018-09-19] MEDS ORDERED: AMOXICILLIN 50500 MG PO (10:58)
--- NOTE | 2018-09-19 12:03 | NUR ---
RECEIVED DC ORDERS PER DR TRAYLOR. I.D. OK WITH DC TODAY. CENTRAL JUGULAR IV DISCONTINUED AND PRESSURE DRESSING PLACED. EDUCATED THE PATIENT AND HER GRAND DAUGHTER ON F/U APPT WITH UROLOGY, INFECTIOUS DISEASE, AND HER PRIMARY. EDUCATED ON HOME MEDICATIONS. NEW SCRIPT GIVEN WITH MED INFORMATION SHEETS. ALL HER BELONGINGS ARE PACKED AND LEAVING WITH THE PATIENT. SHE IS LEAVING VIA WHEELCHAIR ACCOMPANIED BY NURSING STAFF AND HER GRANDDAUGHTER FOR TRANSPORTATION. NO QUESTIONS OR CONCERNS AT TIME OF DISCHARGE.
== END 2018-09-19 12:04 | disposition home or self-care (01) | DRG 853 ==
LOC: M.ERS 14:14 → M.TBA-ER 15:41 → M.2W 15:41 → M.ICU 22:00 → M.2W 09-17 23:35
PROVIDERS: Emergency Medicine; Internal Medicine; Internal Medicine Infectious Disease; Urology; ADMIT Internal Medicine
PROC: 0T768DZ Dilation of Right Ureter with Intraluminal Device, Via Natural or Artificial Opening Endoscopic (ICD-10-PCS; principal; 2018-09-15)
PROC: BT1D1ZZ Fluoroscopy of Right Kidney, Ureter and Bladder using Low Osmolar Contrast (ICD-10-PCS; principal; 2018-09-15)
DX: A41.50 Gram-negative sepsis, unspecified (principal); R65.21 Severe sepsis with septic shock; J69.0 Pneumonitis due to inhalation of food and vomit; J96.91 Respiratory failure, unspecified with hypoxia; N13.6 Pyonephrosis; E87.2 Acidosis; N17.9 Acute kidney failure, unspecified; Z66 Do not resuscitate; G89.29 Other chronic pain; M54.9 Dorsalgia, unspecified; D69.6 Thrombocytopenia, unspecified; K21.9 Gastro-esophageal reflux disease without esophagitis; N13.9 Obstructive and reflux uropathy, unspecified; I10 Essential (primary) hypertension; E86.0 Dehydration; D64.9 Anemia, unspecified; Z87.891 Personal history of nicotine dependence; Z90.49 Acquired absence of other specified parts of digestive tract; Z90.710 Acquired absence of both cervix and uterus; Z79.899 Other long term (current) drug therapy; Z88.5 Allergy status to narcotic agent; Z88.8 Allergy status to other drugs, medicaments and biological substances; Z82.49 Family history of ischemic heart disease and other diseases of the circulatory system; Z83.6 Family history of other diseases of the respiratory system

== ENCOUNTER → 2018-10-31 | Outpatient (CLI) | payer OTHER ==
[~2018-10-31] MED LIST changes: +AMOXICILLIN 50500 MG PO; +EFFEXOR XR75 MG PO; +ZANAFLEX4 MG PO
--- NOTE | 2018-11-03 07:34 | PF ---
[facility] [address] [place] [address] PULMONARY FUNCTION REPORT Name: JANEY DUMAS Room: [facility]#: [id number] Admission: 10/31/18 Attend Phys: Emanuel Conner MD Discharge: Date of : 40 Report #: [id number] THIS REPORT FOR: //name// CC: Emanuel Roberts Devi DATE OF SERVICE: 10/31/2018 ATTENDING PHYSICIAN: Emanuel Conner M.D. INDICATIONS: A 78-year-old female with dyspnea. FINDINGS: Spirometry demonstrates very mild obstructive defects. No significant improvement after a single dose of inhaled bronchodilator. Best study shows an FEV1 of 2.2 and FVC of 3.1, ratio 70%. FEV1 is 98% of predicted. Mild decrease in mid flow rates is noted. Lung volumes performed via plethysmography show normal total lung capacity and vital capacity of 105% of predicted. Diffusion is minimally diminished at 76% of predicted. IMPRESSION: Abnormalities suggest very mild obstructive defect. No significant improvement after inhaled bronchodilator. No complications to the above procedure. <ELECTRONICALLY SIGNED> By: Robby Welch MD 11/03/18 0734 1501 0029Antmary Welch MD /nt
== END ==
LOC: M.PUL 10-30 09:30
DX: R06.09 Other forms of dyspnea (principal)

== ENCOUNTER 2019-10-02 17:37 | Inpatient (IN) | payer MEDICARE ==
[~2019-10-02] VITALS: Ht 167.6 cm; Wt 98.0 kg
--- NOTE | ~2019-10-02 | EKG ---
[place] [address] ELECTROCARDIOGRAM REPORT Name: JANEY DUMAS Room: [facility]9 ADM IN [facility]#: [id number] Admission: 10/02/19 Attend Phys: Tito Reid, Discharge: Date of : 40 Date of Service: 10/02/19 1830 Report #: [id number] THIS REPORT FOR: cc: Alejandra Quinonez Michelle RNP Epiphany, Epiphany MD ~ THIS REPORT FOR: //name// 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
[2019-10-02 17:53] VITALS: BP 186/79
[2019-10-02 18:46] LABS: URINE BILIRUBIN NEGATIVE (Negative); URINE BLOOD TRACE (Negative); URINE CLARITY CLEAR; URINE COLOR YELLOW; URINE GLUCOSE-RANDOM NEGATIVE (Negative); URINE KETONES NEGATIVE (Negative); URINE LEUKOCYTES-REFLEX 1+ (Negative); URINE NITRITE-REFLEX NEGATIVE (Negative); URINE PROTEIN 1+ (Negative); URINE UROBILINOGEN 0.2 E.U./dl (0.2-1.0)
[2019-10-02 18:49] LABS: ABSOLUTE BASOPHILS 0.1 thou/uL (0.0-0.2); ABSOLUTE EOSINOPHILS 0.1 thou/uL (0.0-0.7); ABSOLUTE LYMPHOCYTES 1.6 thou/uL (0.8-5.3); ABSOLUTE MONOCYTES 0.6 thou/uL (0.0-1.2); EOSINOPHILS 1.8 %; HEMATOCRIT 39.2 % (37.0-47.0); HEMOGLOBIN 13.3 gm/dL (12.0-15.0); LYMPHOCYTES 22.1 %; MCH 32.3 pg (26.0-34.0); MCHC 33.9 g/dL (28.0-37.0); MCV 95.1 fL (80.0-100.0); MONOCYTES 7.5 %; MPV 9.6 fl. (7.2-11.1); NUCLEATED RBCS 0 /100WBC; PLATELET COUNT* 207 thou/uL (150-400); POLYS 67.6 %; RBC 4.13 mil/uL (4.20-5.00); RDW-CV 13.7 % (10.5-14.5); WBC 7.4 thou/uL (4.0-11.0)
[2019-10-02 18:55] LABS: BACTERIA-REFLEX 1-9 Few /HPF (None Seen); CASTS None Seen /LPF (None Seen); CRYSTALS None Seen /LPF (None Seen); SQUAMOUS 0-3 Few /LPF (0-3); URINE RBC 0-2 Rare /HPF (0-2); URINE WBC-REFLEX 0-5 Rare /HPF (0-5)
[2019-10-02 18:56] LABS: CALCIUM 9.2 mg/dL (8.5-10.1); CREATININE 0.8 mg/dL (0.6-1.3)
[2019-10-02 19:01] LABS: ALBUMIN 3.9 g/dL (3.4-5.0); TOTAL BILIRUBIN 0.3 mg/dL (<0.1-1.0); TOTAL PROTEIN 7.9 g/dL (6.4-8.2)
[2019-10-02 21:12] VITALS: BP 183/119
[2019-10-02] MEDS ORDERED: CRESTOR40 MG PO (21:57)
[2019-10-03 01:33] VITALS: BP 167/88
[2019-10-03 05:37] VITALS: BP 174/90
[2019-10-03 09:48] VITALS: BP 146/93
[2019-10-03 14:20] VITALS: BP 151/100
[2019-10-03 15:49] VITALS: BP 122/74
--- NOTE | 2019-10-03 19:57 | NUR ---
PT ARRIVED FROM ER AROUND 1630. ASSESSMENT COMPLETED CHARTED. ABLE TO MAKE NEEDS KNOWN. RESTING IN BED SINCE COMING UP. NO C/O PAIN OR DISCOMFORT. UP SBA. DAUGHTERS AT BEDSIDE. CALL LIGHT IN REACH. WILL CONTINUE TO MONITOR.
[2019-10-03 20:00] VITALS: BP 103/52
[2019-10-04 00:37] VITALS: BP 96/46
[2019-10-04 04:00] VITALS: BP 140/65
[2019-10-04 05:18] LABS: ABSOLUTE EOSINOPHILS 0.1 thou/uL (0.0-0.7); ABSOLUTE LYMPHOCYTES 1.4 thou/uL (0.8-5.3); ABSOLUTE MONOCYTES 0.5 thou/uL (0.0-1.2); ABSOLUTE NEUTROPHILS 3.4 thou/uL (1.6-8.1); BASOPHILS 0.6 %; EOSINOPHILS 1.5 %; HEMATOCRIT 36.4 % (37.0-47.0); HEMOGLOBIN 12.4 gm/dL (12.0-15.0); LYMPHOCYTES 26.4 %; MCH 32.6 pg (26.0-34.0); MCHC 34.2 g/dL (28.0-37.0); MCV 95.3 fL (80.0-100.0); MONOCYTES 9.4 %; MPV 9.7 fl. (7.2-11.1); NUCLEATED RBCS 0 /100WBC; PLATELET COUNT* 177 thou/uL (150-400); POLYS 62.1 %; RBC 3.82 mil/uL (4.20-5.00); RDW-CV 13.3 % (10.5-14.5); WBC 5.5 thou/uL (4.0-11.0)
[2019-10-04 05:27] LABS: CALCIUM 8.8 mg/dL (8.5-10.1); POTASSIUM 3.2 mmol/L (3.5-5.1)
--- NOTE | 2019-10-04 06:25 | NUR ---
ASSUMED CARE OF PATIENT AT APPROX 1930. ALERT AND ORIENTED X4. ASSESSMENT COMPLETED AND CHARTED. VSS ON ROOM AIR. PATIENTS ONLY COMPLAINT IS OF CONSTIPATION. UP WITH ASSIST TO USE THE BATHROOM. FLUIDS INFUSED ORDERED. FALL PRECAUTIONS IN PLACE. CALL LIGHT WITHIN REACH. HOURLY ROUNDS COMPLETED. WILL CONTINUE WITH PLAN OF CARE.
[2019-10-04 08:32] VITALS: BP 122/59
[2019-10-04 11:42] VITALS: BP 122/59
[2019-10-04] MEDS ORDERED: MACROBID 100 M100 MG PO (12:22)
[2019-10-04 12:59] VITALS: BP 134/71
--- NOTE | 2019-10-04 13:03 | NUR ---
Pt is A&O. Resides at home with dtr and ELYSIA. Independent, family drives Pt to appts and to run errands. No DME. No hx of HH or SNF. Supportive family. Pt discharging to home today, no needs.
--- NOTE | 2019-10-04 14:04 | CON ---
[address] [address] CONSULTATION Name: ALESIAJANEY HERMINIO Room: [address] IN M.R.#: [id number] Admission: 10/02/19 Attend Phys: Tito Reid MD Discharge: Date of : 40 Report #: [id number] THIS REPORT FOR: //name// cc: Alejandra Quinonez Michelle RNP ~ THIS REPORT FOR: //name// CC: Tito Quinonez CARDIOLOGY CONSULTATION HISTORY OF PRESENT ILLNESS: The patient is a 79-year-old white female who I was asked to see in the hospital today after she was noted to have an abnormal troponin. The history is obtained from the patient, although she has a history of memory loss. She has been admitted here to [facility] in the past. She was admitted here in 2017 after a syncopal spell and was found to be bradycardic. She was admitted here a year ago August 2018 with sepsis from a kidney stone and chronic back pain. She was noted to have an elevated troponin and was seen by Dr. Conner who felt that the troponin elevation is secondary to sepsis. The patient recently was referred down to [facility] and apparently had a pharmacologic nuclear stress test that was unremarkable. She was given a monitor to wear at home for 2 weeks, but apparently no arrhythmias were noted. The patient states that recently she has been short of breath. She went to see her doctor today to submit a urine sample. When she saw her physician today, her blood pressure is elevated. She complained of back pain. She was sent to the Emergency Room for further evaluation and treatment. She denies any significant chest pain, fever, cough, edema. She denied palpitation or syncope. PAST MEDICAL HISTORY: She has had back surgery, cholecystectomy, hysterectomy, knee surgery, hypertension. MEDICATIONS: On admission consisted of carvedilol, Neurontin, lisinopril, omeprazole, Crestor. She previously on Aricept, which was discontinued. ALLERGIES: SHE HAS AN ALLERGY TO CODEINE. FAMILY HISTORY: Negative for heart disease. SOCIAL HISTORY: She is . She lives in [place]. Quit smoking years ago. No alcohol abuse. REVIEW OF SYSTEMS: She has had no history of stroke, asthma, peptic ulcer disease, liver disease. She has had a kidney stone. No cancer. No psychiatric illness. She does have memory loss. PHYSICAL EXAMINATION: GENERAL: Revealed an elderly female, who appeared in no acute distress. VITAL SIGNS: Her blood pressure of 140/80, pulse 70. She is afebrile. HEENT: She was anicteric. Conjunctivae pink. Mucous membranes moist. NECK: Veins are nondistended. CHEST: Clear to auscultation. CARDIOVASCULAR: Regular rate and rhythm. ABDOMEN: Obese. EXTREMITIES: Had no edema. Dorsalis pedis pulse 2+ bilaterally. SKIN: Warm, dry. NEUROLOGIC: Nonfocal. RADIOLOGICAL DATA: Her ECG shows a sinus bradycardia with left anterior fascicular block and right bundle-branch block, no acute changes. She had a nuclear stress test done a year ago that showed ejection fraction 63%. No evidence of ischemia. Her echocardiogram a year ago showed ejection fraction 55%, left ventricular hypertrophy, left atrial enlargement. Her workup in the Emergency Room today, she had portable chest x-ray that showed tortuous aorta, otherwise clear lung gilman. LABORATORY WORK: Sodium 142, creatinine 0.8. Liver function studies were normal. Troponin 0.08, a year ago it was actually 0.93. BNP a year ago was 4173. Her white blood cell count 7.4, hemoglobin 13.3. Her urinalysis today showed protein, trace blood, few leukocytes, squamous cells were noted, few bacteria. IMPRESSION AND RECOMMENDATIONS: 1. Borderline elevated troponin. Recent nuclear stress test showed no ischemia. I would not recommend further cardiac evaluation. 2. Urinary tract infection. 3. Obesity. 4. Elevated blood pressure. The patient has been on a beta-milady, EFREN inhibitor. 5. Hyperlipidemia. The patient is on a statin drug. 6. Previous history of kidney stone. 7. Memory loss. 8. Chronic back pain. <ELECTRONICALLY SIGNED> By: Baljeet Hall MD, FACC 10/04/19 1404 1559 [id number] Hall MD, FACC /nt
--- NOTE | 2019-10-04 19:08 | NUR ---
ASSUMED PT CARE AT 0730. ASSESSMENT COMPLETED CHARTED. ABLE TO MAKE NEEDS KNOWN. RESTING IN BED MOST OF THE DAY. DISCHARGE APPROVED. WAITED FOR DAUGHTER TO GET OFF WORK. IV AND HEART MONITOR REMOVED. NO C/O PAIN OR DISCOMFORT. DISCHARGE WENT OVER WITH PT AND DAUGHTER. NO COMMENTS, QUESTIONS, OR CONCERNS NOTED. PT LEFT IN WHEELCHAIR TO DAUGHTERS CAR AT AROUND 1614. ALL BELONGINS TAKEN WITH HER.
== END 2019-10-04 16:15 | disposition home or self-care (01) | DRG 305 ==
LOC: M.ERS 17:37 → M.2W 20:55 → M.TBA-ER 20:55 → M.2W 10-03 16:06
PROVIDERS: Nurse Practitioner Family; ADMIT Internal Medicine
DX: I16.0 Hypertensive urgency (principal); N39.0 Urinary tract infection, site not specified; R79.89 Other specified abnormal findings of blood chemistry; F41.9 Anxiety disorder, unspecified; M19.90 Unspecified osteoarthritis, unspecified site; R35.0 Frequency of micturition; G89.29 Other chronic pain; M54.2 Cervicalgia; I10 Essential (primary) hypertension; M54.5 Low back pain; E78.5 Hyperlipidemia, unspecified; E66.9 Obesity, unspecified; Z90.710 Acquired absence of both cervix and uterus; Z87.442 Personal history of urinary calculi; Z90.49 Acquired absence of other specified parts of digestive tract; Z88.5 Allergy status to narcotic agent; Z88.8 Allergy status to other drugs, medicaments and biological substances; Z79.899 Other long term (current) drug therapy; Z87.891 Personal history of nicotine dependence; Z68.34 Body mass index [BMI] 34.0-34.9, adult